=== PATIENT | female | born 1975 | race Two or more races ===

== ENCOUNTER 2022-10-07 09:41 | Inpatient (IN) | payer MEDICAID, OTHER ==
[~2022-10-07] VITALS: Ht 154.9 cm; Wt 68.0 kg
[~2022-10-07 09:41] MED LIST: BUSP10TA90 PO; DONE5TAB80 PO; FURO40TA4 PO; GLIP2.5T24 PO; INSUINJ37 SC; INSUINJ48 SC; LOSA100T33 PO; METO25TA5 PO; PAR20T PO; POTA-211 PO; SIMV20TA20 PO
[2022-10-07 10:23] LABS: Basophils # (auto) 0 10 ^3/uL (0-0.2); Basophils % (auto) 0.7 % (0.0-2.0); Eosinophils # (auto) 0.1 10 ^3/uL (0-0.8); Eosinophils % (auto) 0.7 % (0.0-7.0); Hematocrit 40.2 % (36.0-46.0); Hemoglobin 13.6 g/dL (12.2-16.2); Lymphocytes # (auto) 1.2 10 ^3/uL (0.4-5.4); Lymphocytes % (auto) 15.7 % (10.0-50.0); Mean Corpuscular Hemoglobin 30.1 pg (28.0-32.0); Mean Corpuscular Volume 88.7 fL (80.0-100.0); Monocytes # (auto) 0.3 10 ^3/uL (0-1.3); Monocytes % (auto) 3.6 % (0.0-12.0); Neutrophils # (auto) 5.8 10 ^3/uL (1.6-8.6); Neutrophils % (auto) 79.3 % (37.0-80.0); Nucleated Red Blood Cells % 0.1 %; Red Blood Cells 4.53 10^6/uL (4.0-5.20); Red Cell Distribution Width 13.5 % (11.8-14.3); White Blood Cell 7.3 10^3/uL (4.4-10.8)
[2022-10-07 10:39] LABS: INR 0.95 (0.9-1.15); Partial Thromboplastin Time 28.2 sec (24.6-33.4)
[2022-10-07 10:44] LABS: Albumin 3.9 g/dL (3.4-5.0); Magnesium 2.2 mg/dL (1.6-2.6); Potassium 4.1 mmol/L (3.5-5.1)
[2022-10-07 10:47] LABS: BUN/Creatinine Ratio 29.1 (10.0-20.0); Bilirubin, Total 0.4 mg/dL (0.2-1.0)
[2022-10-07] MEDS ORDERED: ASPirin 325 MG TAB PO SCH (15:45)
[2022-10-07] MEDS ORDERED: ASPirin 325 MG TAB PO ONE (16:00)
[2022-10-07] MEDS ORDERED: hydrALAZINE HCL 20 MG/ML VL IV PRN (16:00)
[2022-10-07 16:35] LABS: Magnesium 2.2 mg/dL (1.6-2.6)
[2022-10-07 16:41] LABS: Phosphorus 2.4 mg/dL (2.5-4.90)
[2022-10-07 16:51] LABS: Thyroid Stimulating Hormone 1.02 uIU/mL (0.358-3.74)
[2022-10-07] MEDS: ATORVASTATIN 20 MG TAB PO SCH (22:00)
[2022-10-08 09:18] LABS: Alcohol, Urine < 3.0 mg/dL (0-10); Amphetamine Screen, Urine NEGATIVE (NEGATIVE); Barbiturate Scree,Urine NEGATIVE (NEGATIVE); Benzodiazephine Screen, Urine NEGATIVE (NEGATIVE); Cannabinoid Screen, Urine NEGATIVE (NEGATIVE); Cocaine Screen, Urine NEGATIVE (NEGATIVE); Opiate Scree,Urine NEGATIVE (NEGATIVE); Phencyclidine Screen, Urine NEGATIVE (NEGATIVE)
[2022-10-08] MEDS ORDERED: ENALAPRIL MALEATE 2.5 MG TAB PO SCH (10:00)
[2022-10-08] MEDS: ASPirin 81 mg TAB PO SCH (10:01)
[2022-10-08 13:00] VITALS: BP 110/44
[2022-10-08 17:00] VITALS: BP 97/36
[2022-10-08] MEDS ORDERED: OMEP1CAP70 PO (18:05)
[2022-10-08] MEDS ORDERED: CYCL-614 PO (18:05)
[2022-10-08] MEDS ORDERED: DICL1GEL73 TOP (18:05)
[2022-10-08] MEDS: ATORVASTATIN 20 MG TAB PO SCH (21:22)
[2022-10-08 22:00] VITALS: BP 103/50
[2022-10-09 05:00] VITALS: BP 103/52
[2022-10-09 09:00] VITALS: BP 109/66
[2022-10-09] MEDS: ASPirin 81 mg TAB PO SCH (10:03)
[2022-10-09 12:41] VITALS: BP 114/60
[2022-10-10 05:06] LABS: RPR Non Reactive (Non Reactive)
== END 2022-10-09 13:00 | disposition home or self-care (01) | DRG 47 ==
LOC: ER 09:41 → TELE 15:37 → TELE-WESTW 10-08 10:38
PROVIDERS: ADMIT Nurse Practitioner Family; ATTEND Internal Medicine Geriatric Medicine
DX: G45.9 Transient cerebral ischemic attack, unspecified (principal); F41.9 Anxiety disorder, unspecified; R29.810 Facial weakness; R20.0 Anesthesia of skin; Z87.59 Personal history of other complications of pregnancy, childbirth and the puerperium; Z88.1 Allergy status to other antibiotic agents; Z87.442 Personal history of urinary calculi; Z88.6 Allergy status to analgesic agent
CPT/HCPCS: 36415; 70450; 70551; 71045; 80053; 80061; 80307; 83735; 83880; 84100; 84439; 84443; 84484; 84702; 85025; 85610; 85730; 86592; 93005; 93306; 93886; G0378

== ENCOUNTER 2023-03-25 03:12 | Emergency (ER) | payer MEDICAID ==
[~2023-03-25] VITALS: Ht 154.9 cm; Wt 64.6 kg
[2023-03-25 04:38] LABS: Basophils # (auto) 0.1 10 ^3/uL (0-0.2); Eosinophils # (auto) 0.3 10 ^3/uL (0-0.8); Eosinophils % (auto) 3.2 % (0.0-7.0); Hematocrit 39.9 % (36.0-46.0); Hemoglobin 13.3 g/dL (12.2-16.2); Lymphocytes # (auto) 2.1 10 ^3/uL (0.4-5.4); Lymphocytes % (auto) 24.9 % (10.0-50.0); Mean Corpuscular Hemoglobin 30.1 pg (28.0-32.0); Mean Corpuscular Hgb Conc. 33.3 g/dL (32.0-36.0); Mean Corpuscular Volume 90.5 fL (80.0-100.0); Monocytes # (auto) 0.5 10 ^3/uL (0-1.3); Monocytes % (auto) 5.8 % (0.0-12.0); Neutrophils # (auto) 5.4 10 ^3/uL (1.6-8.6); Neutrophils % (auto) 65.1 % (37.0-80.0); Nucleated Red Blood Cells % 0.1 %; Red Blood Cells 4.41 10^6/uL (4.0-5.20); Red Cell Distribution Width 14.1 % (11.8-14.3); White Blood Cell 8.2 10^3/uL (4.4-10.8)
[2023-03-25 05:12] LABS: Alanine Aminotransferase 10 U/L (7-40); Albumin 4.3 g/dL (3.2-4.8); Alkaline Phosphatase 93 U/L (46-116); Anion Gap 5 (5-15); Aspartate Aminotransferase 15 U/L (13-40); Bilirubin, Total 0.4 mg/dL (0.2-1.0); Blood Urea Nitrogen 17 mg/dL (9-23); Calcium 9.3 mg/dL (8.7-10.4); Carbon Dioxide 29 mmol/L (20-30); Chloride 106 mmol/L (98-107); Glucose 77 mg/dL (74-106); Potassium 4.1 mmol/L (3.5-5.1); Sodium 140 mmol/L (136-145); Total Protein 6.8 g/dL (5.7-8.2)
[2023-03-25] MEDS ORDERED: IBU600T PO (07:34)
[2023-03-25] MEDS ORDERED: HYDROcodone-ACET 10/325MG TAB PO ONE (07:45)
[2023-03-25 09:54] LABS: Urine Bacteria NONE SEEN /hpf (None Seen); Urine Blood Negative /uL (Negative); Urine Clarity Clear (Clear); Urine Color Yellow (Yellow); Urine Protein, UAD Negative (Negative); Urine Specific Gravity 1.023 (1.001-1.035); Urine Urobilinogen Normal (Negative); Urine WBC 1 /hpf (0 - 5); Urine pH 6.5 (5.0-8.0)
[2023-03-25 12:45] VITALS: BP 110/67; PULSE 52; RESP 18; TEMP 97.5; O2SAT 95
== END 2023-03-25 13:14 | disposition home or self-care (01) ==
LOC: ER 03:12
DX: R51.9 Headache, unspecified (principal); Z88.1 Allergy status to other antibiotic agents; Z88.0 Allergy status to penicillin; Z87.442 Personal history of urinary calculi
CPT/HCPCS: 36415; 70450; 80053; 81001; 85025